=== PATIENT | male | born 1990 | race Caucasian/White ===

== ENCOUNTER 2020-08-03 19:57 | Emergency (ER) | payer SELFPAY ==
[2020-08-03 19:58] VITALS: BP 150/84; PULSE 68; RESP 16; TEMP 36.5; O2SAT 100; BMI 25.1
--- NOTE | 2020-08-03 20:14 | RAD_ITS ---
STUDY: X-RAY - LEFT ANKLE REASON FOR EXAM: Male, 30 years old. LOG FELL ONTO LEFT FOOT TECHNIQUE: 3 view(s) of the ankle. COMPARISON: None. FINDINGS: Acute, comminuted fracture of the distal fibular shaft with 4 mm anterolateral displacement of the distal fragment. There is mild widening of the talofibular joint. Nondisplaced fracture of the medial malleolus. Distal tibia is otherwise unremarkable. No additional fracture. Marked medial and lateral soft tissue swelling. RAD/Ankle min 3 Views IMPRESSION: 1. Acute comminuted fracture of the distal fibular shaft. 2. Nondisplaced fracture of the medial malleolus. Electronically Signed: Augustina Gunderson MD at 21:01 EDT Tel , Service support ,
--- NOTE | 2020-08-03 20:14 | RAD_ITS ---
STUDY: X-RAY - LEFT FOOT CLINICAL: Male, 30 years old. LOG FELL ONTO LEFT FOOT YESTERDAY TECHNIQUE: 3 view(s) of the foot. COMPARISON: None. FINDINGS: Normal talus, calcaneus, and tarsal bones. There is an acute fracture of the distal fibular shaft which is incompletely visualized. Normal visualized subtalar, talonavicular, calcaneocuboid, tarsal and tarsometatarsal articulations. Normal metatarsi. Normal metatarsophalangeal joint of the great toe. Normal tibial and fibular sesamoid bones. Normal interphalangeal joint of the great toe. Normal phalanges of the great toe. Normal second through fifth metatarsophalangeal joints. Normal interphalangeal joints and phalanges of the lesser toes. Soft tissue swelling of the distal calf and ankle RAD/Foot min 3 Views IMPRESSION: Acute fracture of the distal fibular shaft incompletely visualized. Normal foot Electronically Signed: Enoc Varner MD at 20:52 EDT , Service support ,
--- NOTE | 2020-08-03 20:20 | ED.VISSUMM ---
- ER Visit Summary Date of Service: 08/03/20 Chief Complaint: [Injury to left foot and ankle] History of Present Illness: The patient is a 30 M [presents to the emergency department with complaint of an injury to his left foot and ankle that occurred yesterday while cutting down a tree. Patient states that it happened very quickly but the part that he was cutting kind of kicked back and struck him on the left lateral aspect of the ankle causing him to fall. Patient's been able to bear weight. Today's noticed increased swelling as well as bruising and became concerned. He denies any other injuries. Patient has no medical history.] Physical Examination: [HEENT-PERRLA, EOMI. Cranial nerves II through XII grossly intact. TMs clear. Mucous membranes moist. No adenopathy. Cardiovascular-regular rate and rhythm without murmur or ectopy Lungs-clear to auscultation, chest wall stable without crepitus or subcu emphysema Abdomen-normoactive bowel sounds, soft, nontender, no rebound or rigidity, no peritoneal signs. Extremities-intact ?4, normal range of motion, normal pulses. Left ankle-patient has diffuse soft tissue swelling over the lateral and medial aspect with diffuse ecchymosis and bruising. Pain is mostly over the lateral malleolus on palpation. Patient also has some discomfort on palpation over the left heel with ecchymosis and bruising noted on the lateral and medial aspect of the heel. Neurovascular intact distally.] Test Results: X-rays of the left ankle showed a distal fibula fracture as well as a medial malleolus fracture. X-rays of the foot showed a incompletely visualized fracture of the left distal fibula.] Emergency Department Course and Treatment: [Case was discussed with orthopedics on-call Dr. Georges Brown. Patient was placed in a posterior and sugar tong type splint short leg splint. Patient will be given crutches. Patient advised not to weight-bear.] Treatment Plan: [We will be referred to orthopedics for follow-up. Patient advised not to weight-bear. Patient given a prescription for [place] for pain. Patient instructed to ice and elevate the extremity.] Disposition: [Discharged home in stable condition] Impression: [Bimalleolar fracture left ankle] This note was generated with [employer] software. It may contain incorrect words, spelling, and punctuation that were not noted in review of the chart prior to signing ED Disposition - Plan for ED Patient: Referrals: NOT,DEFINED [NON-STAFF] -
--- NOTE | 2020-08-03 21:49 | ED.DEP ---
ED Disposition - Plan for ED Patient: Instructions: ED Ankle Fx Distal Fibula Prescriptions: Hydrocodone Bitart/Apap 5-325 [[place] 5MG-325MG] 1 tab PO Q4H PRN PRN 2 Days #20 tab PRN Reason: Pain Prescription Printed Referrals: NOT,DEFINED [NON-STAFF] - Georges Brown DO [STAFF PHYSICIAN] - 3-5 Days
[2020-08-03 21:57] VITALS: RESP 17
== END 2020-08-03 21:58 | disposition home or self-care (01) ==
PROVIDERS: Emergency Provider Emergency Medicine
DX: S82.842A Displaced bimalleolar fracture of left lower leg, initial encounter for closed fracture (principal); S82.55XA Nondisplaced fracture of medial malleolus of left tibia, initial encounter for closed fracture; W22.8XXA Striking against or struck by other objects, initial encounter; Y93.9 Activity, unspecified; Y92.9 Unspecified place or not applicable
CPT/HCPCS: 29515; 73610; 73630; 99283

== ENCOUNTER → 2020-08-09 13:44 | Outpatient (CLI) | payer SELFPAY ==
[2020-08-03 19:58] VITALS: BMI 25.1
--- NOTE | 2020-08-09 13:47 | CT_ITS ---
STUDY: CT LEFT ANKLE WITHOUT CONTRAST REASON FOR EXAM: Male, 30 years old. LEFT ANKLE FRACTURE, TREE FELL ON LEG, BRUISING TO AREA RADIATION DOSAGE (If Supplied By Facility): CTDIvol = ( 6.58 ) mGy, DLP = ( 240.62 ) mGycm TECHNIQUE: Thin section transaxial imaging of the ankle was obtained, with sagittal and coronal reconstructed images. Individualized dose optimization techniques were used for this CT. COMPARISON: None. FINDINGS: Comminuted spiral fracture of distal fibular shaft. Avulsion fracture of the medial malleolus. Tiny avulsion arising from the lateral aspect of the distal tibia. Normal talus, calcaneus, navicular and cuboid tarsal bones. Normal subtalar, talonavicular and calcaneocuboid articulations. Normal navicular-cuneiform, cuneiform tarsal bones and intercuneiform articulations. Normal tarsometatarsal articulations and visualized metatarsi. Soft tissue swelling. CT/Extremity Lower without Contra IMPRESSION: Nondisplaced comminuted spiral fracture of the distal fibular shaft. Avulsion fracture of the medial malleolus. Tiny avulsion arising from the lateral aspect of the distal tibia anteriorly at the level of the tibial fibular joint. Soft tissue swelling. Electronically Signed: Sebastian العراقي, at 14:31 EDT , Service support ,
== END ==
PROVIDERS: Referring Provider Podiatrist Foot & Ankle Surgery; Visit Provider Podiatrist Foot & Ankle Surgery
DX: S82.452A Displaced comminuted fracture of shaft of left fibula, initial encounter for closed fracture (principal); S82.55XA Nondisplaced fracture of medial malleolus of left tibia, initial encounter for closed fracture
CPT/HCPCS: 73700

== ENCOUNTER 2020-08-16 10:17 | Day surgery (SDC) | payer SELFPAY ==
--- NOTE | 2020-08-08 11:13 | EKG12_ITS ---
Test Reason : PRE OP Blood Pressure : / mmHG Vent. Rate : 065 BPM Atrial Rate : 065 BPM P-R Int : 124 ms QRS Dur : 096 ms QT Int : 400 ms P-R-T Axes : 063 081 049 degrees QTc Int : 416 ms Normal sinus rhythm Normal ECG Confirmed by LEA CHRISTIAN, JUAN ([id number]), editor farm journal DEEDEE HOWARD ([id number]) on 08/10/2020 11:35:18 AM Referred By: Christian Brown Confirmed By:JUAN TATE MD
[2020-08-08 12:20] LABS: Absolute Lymphocyte Count 2.31 X10^3/uL (0.83-4.51); Absolute Neutrophil Count 7.1 X10^3/uL (2.0-7.7); Basophil# 0.05 X10^3/uL; Basophil% 0.5 % (0-1); Eosinophil# 0.34 X10^3/uL; Eosinophils% 3.2 % (0-5); Hematocrit 42.7 % (40-54); Hemoglobin 13.7 g/dL (13.0-16.5); Lymphocyte # 2.31 X10^3/ul (4.0); Lymphocyte % 21.9 % (19-41); Mean Corp Hgb Conc 32.1 g/dL (32-36); Mean Corpuscular Hgb 29.1 pg (27.0-32.0); Mean Corpuscular Volume 90.7 fL (80-94); Mean Platelet Vol. 10.7 fl (6.2-12.0); Monocyte# 0.69 X10^3/uL; Monocyte% 6.5 % (0-10); NRBC Flagged by Analyzer 0 % (0-5); Neutrophil % 67.4 % (47-70); Platelet Count 270 K/mm3 (150-450); RBC Distribution Width SD 40.2 fl (35.1-43.9); Red Blood Count 4.71 M/mm3 (4.6-6.2); White Blood Count 10.5 K/mm3 (4.4-11.0)
--- NOTE | 2020-08-08 12:25 | RAD_ITS ---
STUDY: X-RAY CHEST REASON FOR EXAM: Male, 30 years old. HAVING SURGERY ON FOOT NEXT WEEK. TECHNIQUE: PA and lateral views of the chest. COMPARISON: None. FINDINGS: The lungs are clear and expanded. There is no demonstrated pleural abnormality. Normal size heart. Normal mediastinum and murray. Normal visualized pulmonary arteries. Normal visualized aortic arch and descending thoracic aorta. Normal visualized thoracic spine. Normal visualized ribs, clavicles, and shoulders. There is no demonstrated abnormality of the visualized soft tissue structures of the upper abdomen. RAD/Chest PA and Lateral IMPRESSION: Normal x-ray examination of the chest. Electronically Signed: Sebastian العراقي, at 15:49 EDT , Service support ,
[2020-08-08 12:38] LABS: Partial Thromboplast Time 27.2 Seconds (24.1-36.2)
[2020-08-08 12:42] LABS: Hemoglobin A1c 5.4 % (3.8-5.6)
[2020-08-08 12:58] LABS: Anion Gap 5 (5-15); BUN 13 mg/dL (7-18); Calcium,Total 9.1 mg/dL (8.5-10.1); Chloride 105 mmol/L (98-107); EST Glomerular Filtration Rate 94 mL/min (>60); Est Glom Filt Rate - Afr Amer 114 mL/min (>60); Glucose 64 mg/dL (74-106); Potassium 3.9 mmol/L (3.5-5.1); Sodium Level 140 mmol/L (136-145)
[2020-08-16] VITALS (7 sets, daily range): BP systolic 121–159; BP diastolic 74–99; PULSE 67–105; RESP 16–18; TEMP 36.6–37.5; O2SAT 95–100; BMI 24.0
[2020-08-16] MEDS: Lactated Ringers 1,000 ML 100 ML IV ×2 (10:48→15:37)
--- NOTE | 2020-08-16 12:00 | RAD_ITS ---
STUDY: X-RAY - LEFT ANKLE REASON FOR EXAM: Male, 30 years old. ORIF fibula, medial malleolus repair TECHNIQUE: 31 intraoperative view(s) of the ankle. COMPARISON: Prior study of 08/03/2020 FINDINGS: Intraoperative views demonstrate internal fixation with plate and multiple screws of distal fibular shaft fracture. There is internal fixation of an oblique medial malleolar fracture with 2 threaded screws. There is a lucent defect through the distal metaphyses of the tibia and fibula with button stabilization of the distal tibiofibular interosseous ligament.. RAD/Ankle min 3 Views IMPRESSION: Internal stabilization with plate and multiple screws of distal fibular shaft fracture, as well as internal stabilization with 2 screws of an oblique medial malleolar fracture. These appear in excellent alignment. Electronically Signed: Wilber Suero MD at 23:51 EDT , Service support ,
[2020-08-16] MEDS: Cefazolin 2 GM in 0.9% Normal Saline 100 ML IV (12:08)
[2020-08-16] MEDS: Bupivacaine Mpf 0.5% 30 ML VIAL (14:23)
--- NOTE | 2020-08-16 14:35 | PCM.DC.ORTHO ---
Discharge Diet: No Restrictions Discharge Activity: May Not Drive, May Not Shower, May Take a Tub Bath, Use Walker, Use Crutches Weight Bearing Status: No weight bearing Keep extremity elevated above heart level: Left Leg Additional Activity Instructions:: 1. Keep dressing to left leg clean, dry, intact. Do not get dressing wet. Do not remove dressing. If get dressing wet, call office for further instruction. I suggest sponge bathing at this time. 2. Ice around left knee 20 minutes on, 20 minutes off, every hour while you are awake until follow-up appointment. 3. Elevate left foot above the level of the heart as often as possible until further instructed. 4. Begin taking Percocet (pain medication) today, August 16, 2020 as needed. 5. Begin taking doxycycline (antibiotic) tomorrow, August 17, 2020, twice a day as instructed. 6. Begin taking aspirin tomorrow, August 17, 2020, twice a day as instructed. 7. No walking or standing on left foot. Use crutches/walker/knee scooter for assistance. 8. Follow-up in 1 week in [facility] for further postoperative care. Please call office with any questions or concerns. Call your doctor if your incision/area has: Sudden Increased Bleeding, Increased Pain/ Swelling Call your doctor if you observe: Fever of 101 or Higher, Coldness, Increased Pain, Inability to have a bowel movement, Shortness of breath, Chest pain, Increased palpitations (irregular heartbeat), Calf discomfort, Uncontrolled pain Cleanse incision/area with: Do not get Incision Wet, Keep Dressing Clean & Dry Allergies/Adverse Reactions: Allergies No Known Allergies Allergy (Verified 08/16/20 10:23) Medications to take at Discharge Acetaminophen [Tylenol Extra Strength] 500 - 1,000 mg PO Q6H PRN PRN 08/09/20 Aspirin [Aspirin EC] 81 mg PO BID 08/09/20 Primary Care Physician: Care Physician,No Primary [Primary Care Provider] - Test Results: Test results from this visit will be discussed in further detail at your follow-up appointment, if applicable. Please Follow Up With: Christian Brown DPM When: in one week at [place] Office Proposed Discharge Date: 08/16/20
--- NOTE | 2020-08-16 14:41 | OP.PCM_ITS ---
Problem List (1) Closed left fibular fracture Status: Acute Qualifiers: Encounter type: initial encounter Fibula location: shaft Fracture morphology: comminuted Fracture alignment: displaced Qualified Code(s): S82.452A - Displaced comminuted fracture of shaft of left fibula, initial encounter for closed fracture (2) Fx medial malleolus-closed Status: Acute Qualifiers: Encounter type: initial encounter Fracture alignment: nondisplaced Laterality: left Qualified Code(s): S82.55XA - Nondisplaced fracture of medial malleolus of left tibia, initial encounter for closed fracture (3) Ankle syndesmosis disruption Status: Acute Qualifiers: Encounter type: initial encounter Laterality: left Qualified Code(s): S9 3.432A - Sprain of tibiofibular ligament of left ankle, initial encounter Report of Operation Date of Procedure: 08/16/20 Pre-Operative Diagnosis: 1. Left fibular shaft fracture, comminuted, displaced, closed. 2. Left medial malleolus fracture, closed, nondisplaced. 3. Left ankle syndesmotic disruption Post-Operative Diagnosis: Same as preoperative Surgery/Procedure Performed:: 1. Left fibula open reduction with internal fixation. 2. Left medial malleolus open reduction with internal fixation. 3. Left syndesmosis open reduction with internal fixation Description of Surgical Findings:: Consistent with diagnosis. Reduction of deformities achieved and held with internal fixation. bottled beverage inspector: Mayte Alex NP Type of Anesthesia:: General/Regional - a popliteal and saphenous block given to the left lower extremity Anesthesiologist: Quinton Serrano Special Medications: 2 g of Ancef given preoperatively Specimen's removed: None Drains: None Estimated Blood Loss (mL): 25 Description of Procedure: Anesthesia: General with a popliteal and saphenous block of the left lower extremity Hemostasis: Pneumatic thigh tourniquet placed to the level of the left thigh at 275 mmHg for 120 minutes Materials: 1. Arthrex 8 hole recon plate. 2. Arthrex 3.5 x 16 mm cortical screw x5. 3. Arthrex 3.5 x 14 mm cortical screw. 4. Arthrex 4.0 x 50 mm cannulated screw x2. 5. Arthrex tight rope #6. Size 0 Vicryl. 7. Size 2-0 Vicryl. 8. Size 3-0 Vicryl. 9. Size 3-0 nylon. Injectables: 5 mL of 0.5 to Marcaine plain distributed in a proximal saphenous nerve block fashion. Complications: None Condition: Stable Indications: Patient is a 30-year-old male with no significant past medical history who suffered an injury to his left ankle on August 02, 2020. Patient states that at that time he was cutting down a tree while at home. Unfo rtunately, the tree fell and rolled into his left ankle. Patient felt immediate pain in his left ankle and was able to bear weight after the injury. Patient continued activities as tolerated at that day until the next day, where he experienced increased pain. He then presented to the emergency department for further evaluation. At that time, x-rays were taken, revealing a left ankle fracture. Patient was then placed in a posterior splint and was instructed to remain nonweightbearing. He was instructed to follow-up with podiatry. I initially saw the patient on Saturday, August 08, 2020. At that time, I noticed a significant injury of his left ankle based upon the radiographs that were taken in the emergency department. Furthermore, there was significant swelling of his left ankle with loss of skin lines. Due to the swelling that was present, I discussed with the patient that would recommend that we delay surgery until swelling decreases. In the meantime, I recommended a CT scan be performed of his left ankle to further evaluate the fracture. This was then performed, and patient saw me back in the office on Wednesday, August 12, 2020. At that time, I did discuss the CT scan with the patient in detail, stating that he does have a comminuted fibular fracture along with a medial malleolus fracture and likely syndesmosis injury. I discussed with the patient conservative and surgical interventions. I discussed the risks and benefits to both. Surgical intervention would include a left fibula open reduction with internal fixation, left medial malleolus open reduction with internal fixation, and left syndesmosis open reduction with internal fixation. I discussed the risks, benefits, possible outcomes, possible complications of the surgical intervention. These include but not limited to delayed or nonhealing wounds, delayed or nonhealing bone, DVT, infection, continued pain, decreased function of limb, early onset of arthritis, damage to surrounding structures, loss of limb, loss of life. All the patient questions were answered to his satisfaction and all of his concerns were addressed. No guarantees were made as to the outcome of the procedure. Due to the significant injury that was present, I recommended surgical intervention. Patient was agreeable to surgical intervention, and surgery was scheduled for today, August 16, 2020. Operative report: Before the patient was brought to the operating room, the risks, benefits, possible outcomes, possible complications of the surgical intervention once again. These include but not limited to delayed or nonhealing wounds, delayed or nonhealing bone, DVT, infection, continued pain, decreased function of limb, early onset of arthritis, damage to surrounding structures, loss of limb, loss of life. All the patient questions were answered to his satisfaction and all of his concerns were addressed. No guarantees were made as to the outcome of the procedure. Patient understood all aspects of the procedure, and was agreeable to surgical intervention. Consent was then signed by the patient. Before the patient was brought to the operating room, the anesthesiologist administered a popliteal block to the left lower extremity. Patient was then brought to the operating room and placed on the operating table in supine position. After timeout, general anesthesia was obtained and anesthesia to control the airway. Furthermore, anesthesia took control of IV access. Care was taken make sure that all areas of pressure points were well-padded. Next, a well-padded MAC thigh tourniquet was placed the level of the left thigh. The left lower leg was then shaved appropriately and hair was removed. The left foot, ankle, leg were then scrubbed, prepped, draped in the usual sterile manner. At this time, attention was then directed to the lateral aspect of the left lower leg and ankle. Radiograph evaluation was used to farnaz where the fibular fracture was on the skin. Attention was then directed to the medial malleus of the left ankle where the medial malleolus fracture was then marked on the patient. At this time, the left foot, ankle, leg were then elevated and exsanguinated via Esmarch and inflation of the pneumatic thigh tourniquet was performed to 275 mmHg. Attention was then directed back to the lateral aspect of left ankle. At this time, a #15 blade was used to perform a linear longitudinal incision starting on the lateral aspect of the distal one third of the fibular shaft extending distally to the level of the syndesmosis of the left ankle. This incision was approximately 8 cm in length. This incision was deepened utilizing sharp and blunt dissection. Care was taken to retract all vital neural and vascular structures. All bleeders were cauterized and ligated as necessary. Next, a periosteal incision was made in line with the original skin incision. The periosteal and capsular structures were then reflected anteriorly and posteriorly, thus exposing the fibula and the comminuted fracture at the operative site. This time, a curette was used to remove any fibrous tissue contained within the fracture site. The surgical site was then irrigated with copious amounts of normal sterile saline. At this time, the fracture fragments were noted to be significantly comminuted. It was determined that an interfragmentary screw would not be able to hold the fibula in the correct the reduced position. It was thus determined that the corrected position would be held with the plate. The fibula fracture was then reduced and held via temporary fixation. Radiograph evaluation was then performed. Reduction of the fibula fracture was noted when compared to preoperative assessment. At this time, the Arthrex 8 hole recon plate was placed over the lateral aspect of the left fibula and held via temporary fixation. Radiographic evaluation was used to determine the exact positioning of this plate. Once this was had, this was held to the lateral a spect of the fibula via cortical screws. Of note during insertion of the screws was the adequate compression of the plate to the bone. Furthermore, no shifting any of the fragments occurred during insertion of the screws. Once the screws were fully inserted, all temporary fixation was then removed. Radiograph evaluation was then performed. The plate was noted to hold the fibula in the corrected reduced position. All screws were noted to neither be too long or too short. The most distal hole of the plate was left open intentionally for the syndesmosis repair. Attention was then directed the medial malleolus of the left ankle. At this time, #15 blade was used to perform a curvilinear incision starting at the fracture of the medial malleolus extending distally to the distal tip of the medial malleolus. This incision was deepened utilizing sharp and blunt dissection. Care was taken to retract all vital neural and vascular structures. All bleeders were cauterized and ligated as necessary. At this time, an incision was made in line with the original skin incision and the deltoid ligament. The deltoid ligament was then reflected anteriorly and posteriorly, thus exposing the medial malleolus and the fracture at the operative site. At this time, a curette was used to remove any fibrous tissue contained within the fracture site. The surgical site was then irrigated with copious amounts of normal sterile saline. Next, the medial malleolus fracture was reduced and held via the K wires for the cannulated screws. Radiograph evaluation was then performed. The K wire was noted to be well contained within the tibia and were noted to hold the medial malleolus in the corrected reduced position. Adequate positioning was had of these K wires. There were 2 total K wires used for this. Once adequate reduction was had, these K wires were then drilled, and 2 of the Arthrex 4.0 x 50 mm screws were placed over the K wires and inserted in standard AO fixation. Of note during insertion of the screws was the adequate compression of the medial malleolus fracture to the main portion of the tibia. Furthermore, no shifting any of the fragment occurred during insertion of the screws. Once the screws were fully inserted, all temporary fixation was then removed. Radiograph evaluation was then performed. The medial malleolus was noted to be reduced from preoperative assessment and was noted to be held in the corrected position via this internal fixation. At this time, live radiograph evaluation was used to perform the hook and cotton test to evaluate the syndesmosis. Evidence of syndesmosis instability was noted, and it was determined that the syndesmosis would need to be fixated at this time. Attention was then directed back to the lateral surgical site at this time. At this time, a K wire was inserted from the lateral aspect of the distalmost hole of the fibular plate extending medially and superiorly into the tibia approximately 30 degrees to reenact the syndesmosis. Radiograph evaluation was performed to determine exact positioning of this K wire. Once adequate positioning was had, this was then drilled in standard fashion. At this time, the Arthrex tight rope was placed over the K wire and inserted in standard fashion. With the foot held in a forced dorsiflexion position, reduction of the syndesmosis was performed and the tight rope was tightened appropriately. Once adequate tightening was had, radiograph evaluation was then performed. Reduction of the syndesmosis was noted when compared to preoperative assessment. Final radiograph evaluation was then performed. The fibula was noted to be out the length at this time and held in the corrected reduced position via the fixation. The medial malleolus was noted to be back in a reduced position and held via the internal fixation. The syndesmosis was noted to be reduced from preoperative assessment and held via the internal fixation. Each surgical site was then irrigated with copious amounts of normal sterile saline. The deltoid ligament of the medial surgical site was reapproximated and coapted utilizing size 0 Vicryl. The subcutaneous tissues were reapproximated coapted utilizing size 2-0 Vicryl and 3-0 Vicryl of the medial surgical site. The skin of the medial surgical site was reapproximated and coapted utilizing size 3-0 nylon in a simple interrupted and horizontal mattress fashion. The periosteal and capsular structures of the lateral surgical site were then reapproximated coapted utilizing size 0 Vicryl and 2-0 Vicryl. The subcutaneous tissues were reapproximated coapted utilizing size 2-0 Vicryl and 3-0 Vicryl. The skin was reapproximated coapted utilizing size 3-0 nylon in a simple interrupted and horizontal mattress fashion. The pneumatic thigh tourniquet was then released and a prompt hyperemic response was noted to the entirety of the left lower extremity. Next, 5 mL of 0.5 the Marcaine plain was distributed in a proximal saphenous ne rve block fashion in the area of the tibial tuberosity. Each surgical site was then dressed with Betadine soaked gauze, and a dry sterile dressing consisting of 4 x 4 gauze, ABD pads, wrapped with Kerlix. The left foot and ankle were then wrapped with an Dutch bandage. Next, a stockinette was placed over the left lower extremity. Cast padding was wrapped from the metatarsal heads extending proximally to level just distal to the tibial tuberosity. A posterior splint was fashioned to the left lower extremity and was adhered to the left lower extremity utilizing Dutch bandages. Neurovascular status was assessed at the end the application and deemed intact to left lower extremity. The patient tolerated the anesthesia the procedure well and was transported to the PACU vital signs stable and neurovascular status intact to left lower extremity. After period of postoperative monitoring, patient will be discharged home with written and oral instructions for wound care and follow-up. The surgical nurse practitioner, the nurse practitioner, was utilized throughout the entire procedure. She helped with patient positioning, holding of limb, holding of retractors. She helped with exposure throughout. She helped with bandage application and cast application. Without the surgical nurse practitioner, surgical time would have been increased and surgical outcome could have been less optimal. - Complications None - Admit VTE Documentation VTE Present on Admission: No VTE Mechan Device Prophylaxis: SCD's VTE Pharm Prophylaxis ordered?: Yes
--- NOTE | 2020-08-16 15:40 | RAD_ITS ---
STUDY: X-RAY - LEFT ANKLE REASON FOR EXAM: Male, 30 years old. post op ORIF left ankle TECHNIQUE: 3 view(s) of the ankle. COMPARISON: Previous intraoperative study of earlier this date FINDINGS: There is internal fixation with plate and multiple screws are previously noted distal fibular shaft fracture. There is internal fixation with 2 screws of a nondisplaced oblique medial malleolar fracture. Normal tibiotalar articulation and ankle mortise. Normal visualized talus and calcaneus. The visualized subtalar, talonavicular, calcaneocuboid and tarsal articulations are normal. The soft tissue structures are unremarkable. RAD/Ankle min 3 Views IMPRESSION: Internal fixation of medial malleolar and distal fibular shaft fractures, appearing in good alignment. Electronically Signed: Wilber Suero MD at 20:28 EDT , Service support ,
== END 2020-08-16 17:06 | disposition home or self-care (01) ==
LOC: SDC 10:18 → AC 10:19
PROVIDERS: Anesthesiology; Referring Provider Podiatrist Foot & Ankle Surgery; Visit Provider Podiatrist Foot & Ankle Surgery
PROC: (CPT 27766; principal; 2020-08-16 11:40)
DX: S82.452A Displaced comminuted fracture of shaft of left fibula, initial encounter for closed fracture (principal); S82.55XA Nondisplaced fracture of medial malleolus of left tibia, initial encounter for closed fracture; S93.432A Sprain of tibiofibular ligament of left ankle, initial encounter; Z11.59 Encounter for screening for other viral diseases
CPT/HCPCS: 01480; 27766; 27784; 27829; 36415; 71046; 73610; 76000; 80048; 83036; 85025; 85610; 85730; 87635; 93005; C1713; C9803; J7120; J2405; U0003

== ENCOUNTER 2021-08-19 22:02 | Emergency (ER) | payer OTHER, SELFPAY ==
[2021-08-19 22:03] VITALS: BP 144/98; PULSE 61; RESP 16; TEMP 36.6; O2SAT 99; BMI 25.0
--- NOTE | 2021-08-19 23:03 | CT_ITS ---
EXAM: CT ABDOMEN AND PELVIS WITHOUT INTRAVENOUS CONTRAST CLINICAL INDICATION: Right flank pain since this morning TECHNIQUE: Helically acquired images were obtained of the abdomen and pelvis without intravenous contrast. This CT exam was performed using one or more of the following dose reduction techniques: automated exposure control, adjustment of the mA and/or kV according to patient size, and/or use of iterative reconstruction technique. This report was created using [employer] report generation technology. COMPARISON: None. FINDINGS: LOWER THORAX: Unremarkable. Lung bases are clear. No cardiomegaly. No significant pericardial effusion. ABDOMEN: LIVER: Unremarkable. Homogeneous. GALLBLADDER AND BILE DUCTS: Unremarkable. No calcified gallstones. No gallbladder distention or wall edema. No intra- or extrahepatic biliary ductal dilation. PANCREAS: Unremarkable. No focal cystic mass. SPLEEN: Unremarkable. Normal size without focal cystic or solid mass. ADRENALS: Unremarkable. No nodules. KIDNEYS AND URETERS: 2 mm right UVJ calculus with mild hydronephrosis. Normal renal size and position. STOMACH AND BOWEL: Unremarkable. No stomach or bowel distention. No focal inflammatory change. PELVIS: APPENDIX: No evidence of acute appendicitis. BLADDER: Unremarkable. REPRODUCTIVE: Unremarkable as visualized. No mass. ABDOMEN and PELVIS: INTRAPERITONEAL SPACE: Unremarkable. No ascites or other fluid collection. No free air. BONES/JOINTS: Unremarkable. No suspicious lytic or blastic abnormality. SOFT TISSUES: Unremarkable. No discrete abdominal or pelvic wall hernia. VASCULATURE: Partially duplicated IVC. Abdominal aorta is non-dilated. LYMPH NODES: Unremarkable. No enlarged lymph nodes. CT/Abdomen/Pelvis without Cont IMPRESSION: 2 mm right UVJ calculus with mild hydronephrosis. Electronically Signed: Lonny Watts MD ([place]) at 23:39 EDT , Service support ,
--- NOTE | 2021-08-19 23:04 | EX.ED.DYSGE1 ---
HPI History of Present Illness Chief Complaint: Flank Pain Informant: patient Narrative Narrative: 31-year-old male presents for evaluation of right flank pain. Patient states that symptoms began this morning. Located only in the right flank. No testicular pain or abdominal pain. Symptoms began suddenly this morning and he had nausea and vomiting with the pain. Symptoms improved. He another episode at 5 another episode at 8 PM. He denies any change in urination or bowel habits. No fevers. No prior history of kidney stones. PFSH PFSH Medical History (Updated 08/19/21 @ 23:[address] Jorge Washington DO) Hx of fracture of fibula Hx of fracture of tibia Home Medications acetaminophen 500 - 1,000 mg PO Q6H PRN PRN 08/09/20 [History Last Taken Unknown] aspirin 81 mg PO BID 08/09/20 [History Last Taken Unknown] hydrocodone-acetaminophen 1 tab PO Q6H PRN PRN 3 Days #12 tablet 08/19/21 [Rx Last Taken Unknown] ondansetron 4 mg PO Q6H PRN PRN #10 tab 08/19/21 [Rx Last Taken Unknown] Allergy/AdvReac Type Severity Reaction Status Date / Time No Known Allergies Allergy Verified 08/19/21 22:05 Surgical History (Updated 08/19/21 @ 23:[address] Jorge Washington DO) Status post ORIF of fracture of ankle Social History (Updated 08/19/21 @ 23:[address] Jorge Washington DO) Smoking Status: Never smoker substance use type: does not use ROS ROS ED Constitutional Constitutional ED: Denies chills or weight loss Eyes Eyes: Denies change in vision or diplopia ENT ENT ED: Denies ear pain, rhinorrhea or sore throat Cardiovascular Cardiovascular: Denies chest pain, orthopnea, palpitations or racing heartbeat Respiratory/Chest Respiratory/Chest: Denies cough, dyspnea or orthopnea Gastrointestinal Gastrointestinal: Reports nausea and vomiting; Denies abdominal pain or diarrhea Genitourinary Genitourinary ED: Denies dysuria, hematuria or urinary frequency Musculoskeletal Musculoskeletal: Reports other Details: Right flank pain ; Denies arthralgias or myalgias Integumentary Denies abscess or rash Neurologic Neurologic: Denies headache(s) or weakness Psychiatric Psychiatric: Denies anxiety, depression, suicidal ideation or suicidal thoughts Endocrine Endocrinology: Denies polydipsia, polyphagia or polyuria Allergic/Immunologic Allergic/Immunologic ED: Denies mouth swelling, tongue swelling or urticaria EXAM Physical Exam Const Vital Signs: 08/19/21 22:03 08/20/21 00:35 Temperature 97.9 F Temperature Source Temporal Pulse Rate 61 Respiratory Rate 16 16 Blood Pressure 144/98 H Blood Pressure Mean 113 Pulse Ox 99 98 Oxygen Delivery Method Room Air Room Air Positive well nourished and well developed General Appearance ED: well developed HEENT Reports normocephalic, head/scalp atraumatic and moist mucous membranes Eyes PERRL and EOMs intact bilaterally Neck no lymphadenopathy, supple and no JVD Resp normal respiratory effort and clear to auscultation bilaterally Cardio regular rate, regular rhythm and no murmurs GI normal to inspection, nondistended, normoactive bowel sounds and non-tender Palpation: soft Back/Spine no CVA tenderness and normal ROM Extremity normal to inspection General Extremety ED: Negative for edema General Extremity: Negative for edema Neuro oriented x3 and CN's II-XII intact bilaterally Sensorium / Orientation: alert Motor Exam: strength 5/5 throughout Psych mental status grossly normal Mood & Affect: Negative for depressed or tearful Skin no rashes or lesions noted and no wounds MDM MDM MDM Narrative Medical decision making narrative: White count nonspecifically elevated 12.4. Normal creatinine. CT of the and pelvis demonstrates a distal 2 mm ureteral stone. There is associated mild hydronephrosis. Patient received Toradol IV fluids and Zofran. Patient continued to have pain so he received a dose of morphine. Urinalysis shows no infection. Patient will be discharged home with pain and nausea medications. He was advised that this should pass without surgery but may wish to follow-up with urology Lab Data Attestation: I reviewed the patient's lab results. Labs: Laboratory Results - last 24 hr 08/19/21 08/19/21 08/19/21 22:20 22:20 23:41 WBC 12.4 H RBC 5.00 Hgb 14.7 Hct 45.4 MCV 90.8 MCH 29.4 MCHC 32.4 RDW Std Deviation 42.9 RDW Coeff of David 12.9 Plt Count 261 MPV 10.9 Immature Gran % (Auto) 0.300 Neut % (Auto) 68.5 Lymph % (Auto) 20.1 [place] % (Auto) 7.0 Eos % (Auto) 3.6 Baso % (Auto) 0.5 Absolute Neuts (auto) 8.5 H Absolute Lymphs (auto) 2.49 Nucleated RBC % 0 Sodium 140 Potassium 4.2 Chloride 107 Carbon Dioxide 31.0 Anion Gap 2 L BUN 12 Creatinine 1.06 Estim Creat Clear Calc 106.17 Est GFR (MDRD) Af Amer 106 Est GFR (MDRD) Non-Af 88 BUN/Creatinine Ratio 11.3 Glucose 102 Calcium 9.2 Total Bilirubin 0.40 AST 14 L ALT 18 Alkaline Phosphatase 59 Total Protein 7.6 Albumin 4.1 Globulin 3.5 Albumin/Globulin Ratio 1.2 Urine Color Yellow Urine Clarity Sl. Cloudy Urine pH 6.0 Ur Specific [place] 1.020 Urine Protein 15 H Urine Glucose (UA) Normal Urine Ketones Negative Urine Occult Blood 250 H Urine Nitrite Negative Urine Bilirubin Negative Urine Urobilinogen Normal Ur Leukocyte Esterase Negative Urine RBC > 100 SEEN Urine WBC 0 SEEN Ur Squamous Epith Cells 0 SEEN Urine Bacteria RARE Urine Mucus 0 SEEN Radiography Diagnostic Testing: Radiology Impression Abdomen/Pelvis CT 08/19/21 23:03 IMPRESSION: 2 mm right UVJ calculus with mild hydronephrosis. Electronically Signed: Lonny Watts MD ([place]) at 23:39 EDT , Service support , Discharge Plan Triage Chief Complaint: Flank Pain ED Provider: Jorge Washington Dx/Rx/DC Orders Clinical Impression: Ureterolithiasis, Acute flank pain, Vomiting Instructions: ED Kidney Stone w/ Colic Prescriptions: New hydrocodone-acetaminophen [hydrocodone-acetaminophen] 1 TABLET tablet 1 tab PO Q6H PRN PRN (Reason: Pain) 3 Days Qty: 12 RF: 0 ondansetron [ondansetron] 4 MG tablet 4 mg PO Q6H PRN PRN (Reason: Nausea) Qty: 10 RF: 0 No Action aspirin 81 MG tablet,delayed release (DR/EC) 81 mg PO BID RF: 0 acetaminophen 500 MG tablet 500 - 1,000 mg PO Q6H PRN PRN (Reason: pain) RF: 0 Primary Care Provider: Care Physician,No Primary Referrals: Lary,[place], MD [STAFF PHYSICIAN] - 3-5 Days if not improving Care Physician,No Primary [Primary Care Provider] - Disposition Disposition: Home, Self Care
[2021-08-19 23:14] LABS: Absolute Lymphocyte Count 2.49 X10^3/uL (0.83-4.51); Absolute Neutrophil Count 8.5 X10^3/uL (2.0-7.7); Basophil# 0.06 X10^3/uL; Basophil% 0.5 % (0-1); Eosinophil# 0.44 X10^3/uL; Eosinophils% 3.6 % (0-5); Hematocrit 45.4 % (40-54); Hemoglobin 14.7 g/dL (13.0-16.5); Lymphocyte # 2.49 X10^3/ul (0.83-4.51); Lymphocyte % 20.1 % (19-41); Mean Corp Hgb Conc 32.4 g/dL (32-36); Mean Corpuscular Hgb 29.4 pg (27.0-32.0); Mean Corpuscular Volume 90.8 fL (80-94); Mean Platelet Vol. 10.9 fl (6.2-12.0); Monocyte# 0.86 X10^3/uL; NRBC Flagged by Analyzer 0 % (0-5); Neutrophil # 8.47 X10^3/uL (2.7-7.7); Neutrophil % 68.5 % (47-70); Platelet Count 261 K/mm3 (150-450); RBC Distribution Width CV 12.9 % (11.6-14.6); RBC Distribution Width SD 42.9 fl (35.1-43.9); White Blood Count 12.4 K/mm3 (4.4-11.0)
[2021-08-19 23:27] LABS: ALB/GLOB Ratio 1.2 RATIO (0.9-2.4); AST(SGOT) 14 U/L (15-37); Alanine Aminotransfer ALT/SGPT 18 U/L (16-61); Albumin, Serum 4.1 g/dL (3.2-5.0); Alkaline Phosphatase 59 U/L (45-117); Anion Gap 2 (5-15); BUN 12 mg/dL (7-18); BUN/Creat Ratio 11.3 RATIO (10-20); Calcium,Total 9.2 mg/dL (8.5-10.1); Chloride 107 mmol/L (98-107); Creatinine, Serum 1.06 mg/dL (0.70-1.30); EST Glomerular Filtration Rate 88 mL/min (>60); Est Glom Filt Rate - Afr Amer 106 mL/min (>60); Estimated Creatinine Clearance 106.17 ml/min; Globulin 3.5 g/dL (2.2-4.2); Glucose 102 mg/dL (74-106); Potassium 4.2 mmol/L (3.5-5.1); Protein, Total 7.6 g/dL (6.4-8.2); Sodium Level 140 mmol/L (136-145)
[2021-08-19] MEDS: Ketorolac 30 MG/ML Syringe IV (23:46)
[2021-08-19] MEDS: 0.9% Normal Saline 1,000 ML 250 ML IV (23:46)
[2021-08-19] MEDS: Ondansetron 4 MG/2 ML Vial IV (23:47)
[2021-08-19 23:55] LABS: Mucous, Urine 0 SEEN /hpf (<or=2+); Squamous Epithelial Cells - UA 0 SEEN /hpf (0-5); White Blood Cells 0 SEEN /hpf (0-5)
[2021-08-20] LABS: Color, Urine Yellow (Yellow); Glucose, Dipstick Normal (Normal); Ketone-Dipstick Negative (Negative); Leukocyte Esterase-Dipstick Negative /ul (Negative); Nitrite-Dipstick Negative (Negative); Occult Blood-Urine 250 /ul (Negative); Protein-Dipstick 15 mg/dl (Negative); Urine Bilirubin Dipstick Negative (Negative); Urine Clarity Sl. Cloudy (Clear); Urine Urobilinogen Normal (Normal)
[2021-08-20 00:21] LABS: Bacteria RARE /hpf (None Seen); Red Blood Cells-Urine > 100 SEEN /hpf (0-5)
[2021-08-20] MEDS: Morphine 4 MG/ML Syringe IV (00:34)
[2021-08-20 00:35] VITALS: RESP 16; O2SAT 98
== END 2021-08-20 00:59 | disposition home or self-care (01) ==
PROVIDERS: Emergency Provider Emergency Medicine
DX: N13.2 Hydronephrosis with renal and ureteral calculous obstruction (principal)
CPT/HCPCS: 74176; 80053; 81001; 85025; 96361; 96374; 96375; 99283; A4216; J2405